=== PATIENT | male | born 1955 ===

== ENCOUNTER → 2021-11-21 | Outpatient (REF) | payer MEDICARE, BC ==
[2021-11-21 18:23] LABS: CREATININE, URINE 66.3 MG/DL; MALB URINE SIEMENS 9.6 MG/L; MAU/CREAT RATIO 14.4 MCG/MG (0.0-30.0)
== END ==
LOC: M LAB REF 16:55
PROVIDERS: ATTEND Nurse Practitioner Family
DX: E11.22 Type 2 diabetes mellitus with diabetic chronic kidney disease (principal); N18.9 Chronic kidney disease, unspecified

== ENCOUNTER → 2022-09-14 | Outpatient (REF) | payer MEDICARE, BC ==
[2022-09-14 19:11] LABS: CREATININE, URINE 62.5 MG/DL; MALB URINE SIEMENS < 3.0 MG/L; MAU/CREAT RATIO 4.8 MCG/MG (0.0-30.0)
== END ==
LOC: M LAB REF 17:07
PROVIDERS: ATTEND Nurse Practitioner Family
DX: E11.22 Type 2 diabetes mellitus with diabetic chronic kidney disease (principal); E03.9 Hypothyroidism, unspecified